=== PATIENT | female | born 1990 | race Caucasian/White ===

== ENCOUNTER 2018-12-17 12:34 | Emergency (ER) | payer MEDICAID ==
[2018-12-17] MEDS ORDERED: Ibuprofen TAB* 400 MG PO ONE (13:11)
--- NOTE | 2018-12-17 13:53 | ED ---
Lower Extremity - HPI Summary HPI Summary: A 28 y/o female brought in by [place] ambulance presents to [facility] with a chief complaint of left foot pain today. She reports that she was turning quickly around a curve and felt her ankle roll and then she heard a pop. At triage she rated her pain as a 3/10 in severity. She claims that she has often torn ligaments and is requesting x-rays of her left foot. 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 - History of Current Complaint Chief Complaint: EDExtremityLower Stated Complaint: LEFT FOOT INJURY PER EMS Time Seen by Provider: 12/17/18 13:05 Hx Obtained From: Patient Mechanism Of Injury: Other - rolled ankle Onset of Pain: Immediate, Post Accident, Prior to Arrival Onset/Duration: Minutes Severity Initially: Mild Severity Currently: Mild Pain Intensity: 3 Pain Scale Used: 0-10 Numeric Timing: Constant Location: Is Discrete @ - left foot Character Of Pain: Unable To Describe Associated Signs And Symptoms: Negative: Fever Aggravating Factor(s): Nothing Alleviating Factor(s): Nothing - Allergies/Home Medications Allergies/Adverse Reactions: Allergies Allergy/AdvReac Type Severity Reaction Status Date / Time Penicillins Allergy Rash Verified 12/17/18 13:23 PMH/Surg Hx/FS Hx/Imm Hx Sensory History: Denies: Hx Deafness EENT History: Denies: Hx Deafness Infectious Disease History: No Infectious Disease History: Denies: Traveled Outside the [place] in Last 30 Days - Family History Known Family History: Negative: Blood Disorder - Social History Alcohol Use: None Alcohol Amount: in rehab Substance Use Type: Reports: None Substance Use Comment - Amount & Last Used: denies states "in rehab for drugs and ETOH" does not elaborate Smoking Status (MU): Former Smoker Review of Systems Negative: Fever Positive: Other - positive: left foot pain All Other Systems Reviewed And Are Negative: Yes Physical Exam - Summary Physical Exam Summary: GENERAL: Patient is a well-developed and nourished F who is lying comfortable in the stretcher. Patient is not in any acute respiratory distress. HEAD AND FACE: Normocephalic EYES: PERRLA, EOMI x 2. EARS: Hearing grossly intact. MOUTH: Oropharynx within normal limits. NECK: Supple, trachea is midline, no adenopathy, no JVD, no carotid bruit. CHEST: Symmetric, no tenderness at palpation LUNGS: Clear to auscultation bilaterally. No wheezing or crackles. CVS: Regular rate and rhythm, S1 and S2 present, no murmurs or gallops appreciated. ABDOMEN: Soft, non-tender. Bowel sounds are normal. No abnormal abdominal pulsations. EXTREMITIES: TTP over lateral malleolus, TTP over lateral aspect of foot, Neurovascularly intact. Full ROM in all major joints, no edema, no cyanosis or clubbing. NEURO: Alert and oriented x 3. No acute neurological deficits. Speech is normal and follows commands. SKIN: Dry and warm Triage Information Reviewed: Yes Vital Signs On Initial Exam: Initial Vitals Temp Pulse Resp BP Pulse Ox 98 F 65 18 139/77 100 12/17/18 12:37 12/17/18 12:37 12/17/18 12:37 12/17/18 12:37 12/17/18 12:37 Vital Signs Reviewed: Yes Diagnostics - Vital Signs Vital Signs Temp Pulse Resp BP Pulse Ox 12/17/18 12:37 98 F 65 18 139/77 100 - Laboratory Lab Statement: Any lab studies that have been ordered have been reviewed, and results considered in the medical decision making process. - Radiology Foot x-ray Radiology Interpretation Completed By: Radiologist Summary of Radiographic Findings: Nondisplaced intra-articular fracture at the base of the fifth metatarsal (zone 1). Negative for additional fracture or articular malalignment at the ankle or foot. Small bone islands noted at the medial and lateral malleoli. Soft tissue swelling superficial to the base of the fifth metatarsal. ED physician has reviewed this imaging report. ankle x-ray Radiology Interpretation Completed By: Radiologist Summary of Radiographic Findings: Nondisplaced intra-articular fracture at the base of the fifth metatarsal (zone 1). Negative for additional fracture or articular malalignment at the ankle or foot. Small bone islands noted at the medial and lateral malleoli. Soft tissue swelling superficial to the base of the fifth metatarsal. ED physician has reviewed this imaging report. Re-Evaluation - Re-Evaluation First Eval Re-Evaluation Time: 15:17 Change: Unchanged Comment: Discussed results and plan for DC. Lower Extremity Course/Dx - Course Course Of Treatment: A 28 y/o female brought in by [place] ambulance presents to [facility] with a chief complaint of left foot pain today. The physical exam revealed TTP over lateral malleolus, TTP over lateral aspect of foot, Neurovascularly intact. In the ED course the patient was given 800mg Motrin PO. Foot x-ray impression: Nondisplaced intra-articular fracture at the base of the fifth metatarsal (zone 1). Negative for additional fracture or articular malalignment at the ankle or foot. Small bone islands noted at the medial and lateral malleoli. Soft tissue swelling superficial to the base of the fifth metatarsal. Ankle x-ray impression: Nondisplaced intra-articular fracture at the base of the fifth metatarsal (zone 1). Negative for additional fracture or articular malalignment at the ankle or foot. Small bone islands noted at the medial and lateral malleoli. Soft tissue swelling superficial to the base of the fifth metatarsal. The patient's foot is immobilized. She is still non- weight bearing. She will be discharged and was given crutches. I discussed results with patient, and she reports feeling better. She is hemodynamically stable and safe for discharge. Strict return precautions given and she will otherwise follow up with her PCP. - Diagnoses Provider Diagnoses: Metatarsal fracture Discharge - Sign-Out/Discharge Documenting (check all that apply): Patient Departure - DC Patient Received Moderate/Deep Sedation with Procedure: No - Discharge Plan Condition: Stable Disposition: HOME Patient Education Materials: Foot Fracture in Adults (ED) Referrals: Higinio Roca MD [Medical Doctor] - 1 Day Additional Instructions: Follow up with brijesh Temple. Follow up with your primary care physician in 1-3 days. RETURN TO THE EMERGENCY DEPARTMENT FOR CHANGING OR WORSENING SYMPTOMS. - Billing Disposition and Condition Condition: STABLE Disposition: Home - Attestation Statements Document Initiated by Josselynibe: Yes Documenting Scribe: Jared Echavarria Provider For Whom Son is Documenting (Include Credential): Nabil Powers MD Scribe Attestation: Jared Dill, scribed for Nabil Powers MD on 12/17/18 at 1813. Scribe Documentation Reviewed: Yes Provider Attestation: The documentation as recorded by the Jared carrizales accurately reflects the service I personally performed and the decisions made by me, Dae Powers MD Status of Scribe Document: Viewed
[2018-12-17 15:40] VITALS: BP 142/74
== END 2018-12-17 15:39 | disposition home or self-care (01) ==
LOC: ED 12:34
DX: S92.355A Nondisplaced fracture of fifth metatarsal bone, left foot, initial encounter for closed fracture (principal); X50.9XXA Other and unspecified overexertion or strenuous movements or postures, initial encounter; Z87.891 Personal history of nicotine dependence
CPT/HCPCS: 99282; A9270-GY

== ENCOUNTER 2019-01-02 22:37 | Emergency (ER) | payer MEDICAID ==
--- OUTSIDE RECORDS SUMMARY | 2019-01-02 23:04 | XMS REPORT | Continuity of Care Document ---
:1990 External Reference #:[id number] Author Name Lisa Prado Care Team Providers Name Role Phone Patient's Choice Primary Care Physician Unavailable Payers Date Identification Numbers Payment Provider Subscriber Effective: 2018 Policy Number: [id number] [employer] Annie Velasquez PayID: [id number] [address] [address] [place] [address] Problems Active Problems Provider Date Closed fracture of metatarsal bone Kai Joseph MD Onset: 12/27/2018 Social History Type Date Description Comments Sex Unknown Tobacco Use Start: Unknown End: Patient is a former smoker quit 3 months ago Unknown Smoking Status Reviewed: 12/27/18 Patient is a former smoker quit 3 months ago Allergies, Adverse Reactions, Alerts Active Allergies Reaction Severity Comments Date Penicillin 12/27/2018 Medications Active Medications SIG Qnty Indications Ordering Provider Date Wellbutrin XL 1 by mouth every Unknown 300mg day Tablets ER 24HR Strattera Unknown 40mg Capsules Hydroxyzine HCL half or 1 tab by Unknown 50mg mouth at bedtime Tablets as needed insomnia Topamax 1 tab in in the Unknown 50mg Tablets morning and 2 tab in at night by mouth Ibuprofen 200 800mg bid prn Unknown 200mg Tablets Vital Signs Date Vital Result Comment 12/27/2018 1:49pm Height 65 inches 5'5" Weight 180.00 lb Heart Rate 102 /min BP Systolic 122 mmHg BP Diastolic 82 mmHg Respiratory Rate 18 /min Body Temperature 98.0 F Pain Level 4 BMI (Body Mass Index) 30.0 kg/m2 Plan of Treatment Future Appointment(s):02/07/2019 1:15 pm - Kai Joseph MD at [facility]12/27/2018 - Kai Joseph, [id number] Nondisplaced fracture of fifth metatarsal bone, left foot, iNew Xrays:Foot Left 3+ VWS, Ordered: 12/27Follow up:Follow Up: 6 weeks
--- NOTE | 2019-01-03 01:21 | ED ---
Lower Extremity - HPI Summary HPI Summary: 28-year-old female presents with left ankle swelling today. States she broke her foot about a week and a half ago and has been in a boot. She noticed today some swelling to the anterior left ankle. 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 She denies any calf pain. No chest pain or shortness breath. No family history of blood clots. No recent travel. - History of Current Complaint Chief Complaint: EDExtremityLower Stated Complaint: LUMP ON ANKLE PER PT Time Seen by Provider: 01/03/19 00:30 Pain Intensity: 2 - Allergies/Home Medications Allergies/Adverse Reactions: Allergies Allergy/AdvReac Type Severity Reaction Status Date / Time Penicillins Allergy Rash Verified 12/17/18 13:23 Home Medications: Home Medications Atomoxetine (NF) [Strattera (NF)] 40 mg PO DAILY 01/03/19 [History Confirmed 04/14] Bupropion XL* [Wellbutrin XL *] 300 mg PO DAILY 01/03/19 [History Confirmed 04/14] Topiramate TAB(*) [Topamax 25 MG tab] 50 mg PO DAILY 01/03/19 [History Confirmed 01/03/19] PMH/Surg Hx/FS Hx/Imm Hx Sensory History: Denies: Hx Deafness Infectious Disease History: No Infectious Disease History: Denies: Traveled Outside the [place] in Last 30 Days - Family History Known Family History: Negative: Blood Disorder - Social History Alcohol Use: None Alcohol Amount: in rehab Substance Use Type: Reports: None Substance Use Comment - Amount & Last Used: denies states "in rehab for drugs and ETOH" does not elaborate Smoking Status (MU): Former Smoker Review of Systems Negative: Fever Negative: Chest Pain Negative: Shortness Of Breath Positive: Edema - left ankle pain All Other Systems Reviewed And Are Negative: Yes Physical Exam Triage Information Reviewed: Yes Vital Signs On Initial Exam: Initial Vitals Temp Pulse Resp BP Pulse Ox 98.2 F 73 18 116/54 98 01/02/19 22:49 01/02/19 22:49 01/02/19 22:49 01/02/19 22:49 01/02/19 22:49 Vital Signs Reviewed: Yes Appearance: Positive: Well-Appearing Skin: Positive: Warm, Dry Head/Face: Positive: Normal Head/Face Inspection Eyes: Positive: Normal, Conjunctiva Clear ENT: Positive: Pharynx normal Respiratory/Lung Sounds: Positive: Clear to Auscultation, Breath Sounds Present Cardiovascular: Positive: Normal, RRR Musculoskeletal: Positive: Strength/ROM Intact - left leg, Edema Left - over ankle left, Other - good pulses Neurological: Positive: Normal Psychiatric: Positive: Normal Diagnostics - Vital Signs Vital Signs Temp Pulse Resp BP Pulse Ox 01/02/19 22:49 98.2 F 73 18 116/54 98 - Laboratory Lab Statement: Any lab studies that have been ordered have been reviewed, and results considered in the medical decision making process. - Ultrasound No standard instances Ultrasound Interpretation Completed By: Radiologist Summary of Ultrasound Findings: IMPRESSION: No left lower extremity deep vein thrombosis. Lower Extremity Course/Dx - Course Course Of Treatment: 28-year-old female presents with left ankle swelling today. States she broke her foot about a week and a half ago and has been in a boot. She noticed today some swelling to the anterior left ankle. 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 She denies any calf pain. No chest pain or shortness breath. No family history of blood clots. No recent travel. On exam has edema noted on the anterior left ankle. Appears more just like a soft tissue edema. neurovascular intact. Ultrasound shows no DVT. told keep boot on the area and told to ice elevate. Patient understands agrees with plan - Diagnoses Differential Diagnosis/HQI/PQRI: Positive: DVT, Sprain, Strain Provider Diagnoses: Edema of left ankle Discharge - Sign-Out/Discharge Documenting (check all that apply): Patient Departure Patient Received Moderate/Deep Sedation with Procedure: No - Discharge Plan Condition: Good Disposition: HOME Patient Education Materials: Edema (ED) Referrals: No Primary Care Phys,NOPCP [Primary Care Provider] - Additional Instructions: Ice Elevate keep boot on area Take Tylenol for pain every 6 hours Follow up with primary within 5 days Return to ED if develop any new or worsening symptoms - Billing Disposition and Condition Condition: GOOD Disposition: Home
[2019-01-03 01:56] VITALS: BP 142/74
== END 2019-01-03 01:55 | disposition home or self-care (01) ==
LOC: ED 22:37
DX: M25.472 Effusion, left ankle (principal); Z88.0 Allergy status to penicillin; Z79.899 Other long term (current) drug therapy; Z87.891 Personal history of nicotine dependence
CPT/HCPCS: 99282